=== PATIENT | male | born 1975 | race Caucasian/White ===

== ENCOUNTER → 2016-09-25 | Outpatient (CLI) | payer OTHER ==
[~2016-09-25] MED LIST: CEPH500 PO; CIPR-278 PO; COLL30OI TP; GABA-531 PO; HYD25 PO; HYDR-3965 PO; HYDR10SY16 PO; RIVA10 PO; SANTO TP; TRIA15CR48 TP
[2016-09-25 14:02] VITALS: BP 153/86
== END | disposition home or self-care (01) ==
LOC: HBOWC 13:42
PROVIDERS: ATTEND Emergency Medicine
DX: L97.321 Non-pressure chronic ulcer of left ankle limited to breakdown of skin (principal); L97.311 Non-pressure chronic ulcer of right ankle limited to breakdown of skin; L97.811 Non-pressure chronic ulcer of other part of right lower leg limited to breakdown of skin; L95.0 Livedoid vasculitis; I87.2 Venous insufficiency (chronic) (peripheral)
CPT/HCPCS: 97597

== ENCOUNTER → 2016-10-09 | Outpatient (CLI) | payer OTHER ==
[2016-10-09 14:24] VITALS: BP 128/73
== END | disposition home or self-care (01) ==
LOC: HBOWC 13:38
PROVIDERS: ATTEND Emergency Medicine
DX: I87.2 Venous insufficiency (chronic) (peripheral) (principal); L97.321 Non-pressure chronic ulcer of left ankle limited to breakdown of skin; L97.311 Non-pressure chronic ulcer of right ankle limited to breakdown of skin; G89.29 Other chronic pain; L95.0 Livedoid vasculitis; Z79.01 Long term (current) use of anticoagulants
CPT/HCPCS: 97597

== ENCOUNTER → 2016-10-23 | Outpatient (CLI) | payer OTHER ==
[~2016-10-23] MED LIST changes: -CIPR-278 PO; -HYDR10SY16 PO
[2016-10-23 15:46] VITALS: BP 123/55
== END | disposition home or self-care (01) ==
LOC: HBOWC 14:17
PROVIDERS: ATTEND Emergency Medicine
DX: I87.2 Venous insufficiency (chronic) (peripheral) (principal); L97.321 Non-pressure chronic ulcer of left ankle limited to breakdown of skin; L97.311 Non-pressure chronic ulcer of right ankle limited to breakdown of skin; L97.821 Non-pressure chronic ulcer of other part of left lower leg limited to breakdown of skin; L97.811 Non-pressure chronic ulcer of other part of right lower leg limited to breakdown of skin; L95.0 Livedoid vasculitis
CPT/HCPCS: 97597

== ENCOUNTER → 2016-11-06 | Outpatient (CLI) | payer OTHER ==
[~2016-11-06] MED LIST changes: -CEPH500 PO; -COLL30OI TP; +LIDOCAINE HCL 2% 5 ML JELLY TP ONE; -TRIA15CR48 TP
[2016-11-07 07:46] VITALS: BP 143/63
== END | disposition home or self-care (01) ==
LOC: HBOWC 14:39
PROVIDERS: ATTEND Emergency Medicine
DX: L97.511 Non-pressure chronic ulcer of other part of right foot limited to breakdown of skin (principal); L97.811 Non-pressure chronic ulcer of other part of right lower leg limited to breakdown of skin; I87.2 Venous insufficiency (chronic) (peripheral); G58.8 Other specified mononeuropathies; L95.0 Livedoid vasculitis; I10 Essential (primary) hypertension; B19.20 Unspecified viral hepatitis C without hepatic coma; Z79.01 Long term (current) use of anticoagulants
CPT/HCPCS: 97597

== ENCOUNTER → 2016-11-20 | Outpatient (CLI) | payer OTHER ==
[~2016-11-20] MED LIST changes: +CEPH500 PO; +COLL30OI TP; -LIDOCAINE HCL 2% 5 ML JELLY TP ONE; +TRIA15CR48 TP; +TRIAMCINOLONE 0.1% 15 GM CREAM TP ONE
[2016-11-20 14:24] VITALS: BP 127/70
== END | disposition home or self-care (01) ==
LOC: HBOWC 13:46
PROVIDERS: ATTEND Emergency Medicine
DX: L97.321 Non-pressure chronic ulcer of left ankle limited to breakdown of skin (principal); L97.311 Non-pressure chronic ulcer of right ankle limited to breakdown of skin; L97.511 Non-pressure chronic ulcer of other part of right foot limited to breakdown of skin; L97.811 Non-pressure chronic ulcer of other part of right lower leg limited to breakdown of skin; I87.2 Venous insufficiency (chronic) (peripheral); G62.9 Polyneuropathy, unspecified; I10 Essential (primary) hypertension; L95.0 Livedoid vasculitis; Z79.01 Long term (current) use of anticoagulants; Z86.19 Personal history of other infectious and parasitic diseases
CPT/HCPCS: 97597

== ENCOUNTER → 2016-12-04 | Outpatient (CLI) | payer OTHER ==
[~2016-12-04] MED LIST changes: -SANTO TP; -TRIAMCINOLONE 0.1% 15 GM CREAM TP ONE
[2016-12-04 14:07] VITALS: BP 121/78
== END | disposition home or self-care (01) ==
LOC: HBOWC 13:45
PROVIDERS: ATTEND Emergency Medicine
DX: L97.321 Non-pressure chronic ulcer of left ankle limited to breakdown of skin (principal); L97.811 Non-pressure chronic ulcer of other part of right lower leg limited to breakdown of skin; L97.511 Non-pressure chronic ulcer of other part of right foot limited to breakdown of skin; L95.0 Livedoid vasculitis; I87.2 Venous insufficiency (chronic) (peripheral); I10 Essential (primary) hypertension; Z79.01 Long term (current) use of anticoagulants
CPT/HCPCS: 97597

== ENCOUNTER → 2016-12-18 | Outpatient (CLI) | payer OTHER ==
[2016-12-18 15:14] VITALS: BP 135/73
== END | disposition home or self-care (01) ==
LOC: HBOWC 14:36
PROVIDERS: ATTEND Emergency Medicine
DX: L97.311 Non-pressure chronic ulcer of right ankle limited to breakdown of skin (principal); I87.2 Venous insufficiency (chronic) (peripheral); L95.0 Livedoid vasculitis; B19.20 Unspecified viral hepatitis C without hepatic coma; I10 Essential (primary) hypertension; Z79.01 Long term (current) use of anticoagulants
CPT/HCPCS: 97597

== ENCOUNTER → 2016-12-26 | Outpatient (CLI) | payer OTHER ==
[~2016-12-26] MED LIST changes: -CEPH500 PO
[2016-12-26 14:08] VITALS: BP 148/73
== END | disposition home or self-care (01) ==
LOC: HBOWC 13:20
PROVIDERS: ATTEND Emergency Medicine
DX: I87.2 Venous insufficiency (chronic) (peripheral) (principal); L97.512 Non-pressure chronic ulcer of other part of right foot with fat layer exposed; L95.0 Livedoid vasculitis; I10 Essential (primary) hypertension; B19.20 Unspecified viral hepatitis C without hepatic coma; Z79.01 Long term (current) use of anticoagulants
CPT/HCPCS: 97597

== ENCOUNTER → 2017-01-09 | Outpatient (CLI) | payer OTHER ==
[~2017-01-09] MED LIST changes: +CEPH500 PO
[2017-01-09 14:00] VITALS: BP 130/77
== END | disposition home or self-care (01) ==
LOC: HBOWC 13:58
PROVIDERS: ATTEND Emergency Medicine
DX: L97.512 Non-pressure chronic ulcer of other part of right foot with fat layer exposed (principal); L97.521 Non-pressure chronic ulcer of other part of left foot limited to breakdown of skin; I87.2 Venous insufficiency (chronic) (peripheral); L95.0 Livedoid vasculitis; I10 Essential (primary) hypertension; B19.20 Unspecified viral hepatitis C without hepatic coma; Z79.01 Long term (current) use of anticoagulants
CPT/HCPCS: 97597

== ENCOUNTER → 2017-01-31 | Outpatient (CLI) | payer OTHER ==
[2017-01-31 15:18] VITALS: BP 138/87
== END | disposition home or self-care (01) ==
LOC: HBOWC 15:04
PROVIDERS: ATTEND Emergency Medicine
DX: L97.511 Non-pressure chronic ulcer of other part of right foot limited to breakdown of skin (principal); I87.2 Venous insufficiency (chronic) (peripheral); B19.20 Unspecified viral hepatitis C without hepatic coma; I10 Essential (primary) hypertension
CPT/HCPCS: 97597

== ENCOUNTER → 2017-02-14 | Outpatient (CLI) | payer OTHER ==
[2017-02-14 15:00] VITALS: BP 136/79
== END | disposition home or self-care (01) ==
LOC: HBOWC 14:17
PROVIDERS: ATTEND Emergency Medicine Undersea and Hyperbaric Medicine
DX: I87.2 Venous insufficiency (chronic) (peripheral) (principal); L97.321 Non-pressure chronic ulcer of left ankle limited to breakdown of skin; L97.311 Non-pressure chronic ulcer of right ankle limited to breakdown of skin; L95.0 Livedoid vasculitis; I10 Essential (primary) hypertension; B19.20 Unspecified viral hepatitis C without hepatic coma; Z79.01 Long term (current) use of anticoagulants
CPT/HCPCS: 97597

== ENCOUNTER → 2017-03-03 | Outpatient (CLI) | payer OTHER ==
[~2017-03-03] MED LIST changes: +ABX; +ASPI-891 PO; +BACTSS GT; +BETA50CR5 TP; +CIPR-278 PO; +CLOT10TR11 MM; +CLOT15C TP; +CLOT15CR5 TP; +HYDR10SY16 PO; +LIDO45CR TP; +OXYC10 PO; +SANTO TP; +TRAM50TA4 PO; +TRI115C TP; +TYL3 PO; +VICOT PO; +WARF10TA23 PO; +WARF5 PO; +WARF7.5 PO
[2017-03-03 15:52] VITALS: BP 114/61
== END | disposition home or self-care (01) ==
LOC: HBOWC 14:17
PROVIDERS: ATTEND Emergency Medicine
DX: I87.2 Venous insufficiency (chronic) (peripheral) (principal); L97.511 Non-pressure chronic ulcer of other part of right foot limited to breakdown of skin; L97.521 Non-pressure chronic ulcer of other part of left foot limited to breakdown of skin; L97.321 Non-pressure chronic ulcer of left ankle limited to breakdown of skin; L97.311 Non-pressure chronic ulcer of right ankle limited to breakdown of skin; I10 Essential (primary) hypertension; B19.20 Unspecified viral hepatitis C without hepatic coma; L95.0 Livedoid vasculitis; Z79.01 Long term (current) use of anticoagulants
CPT/HCPCS: 97597

== ENCOUNTER → 2017-03-19 | Outpatient (CLI) | payer OTHER ==
[~2017-03-19] MED LIST changes: -ABX; -ASPI-891 PO; -BACTSS GT; -CEPH500 PO; -CIPR-278 PO; -CLOT10TR11 MM; -CLOT15C TP; -CLOT15CR5 TP; -HYDR10SY16 PO; -LIDO45CR TP; +LIDO5JEL7 TP; -OXYC10 PO; -SANTO TP; -TRAM50TA4 PO; -TRI115C TP; -TRIA15CR48 TP; -TYL3 PO; -VICOT PO; -WARF10TA23 PO; -WARF5 PO; -WARF7.5 PO
[2017-03-19 15:31] VITALS: BP 147/96
== END | disposition home or self-care (01) ==
LOC: HBOWC 14:41
PROVIDERS: ATTEND Emergency Medicine
DX: I87.2 Venous insufficiency (chronic) (peripheral) (principal); L97.321 Non-pressure chronic ulcer of left ankle limited to breakdown of skin; L97.311 Non-pressure chronic ulcer of right ankle limited to breakdown of skin; L97.511 Non-pressure chronic ulcer of other part of right foot limited to breakdown of skin; L97.521 Non-pressure chronic ulcer of other part of left foot limited to breakdown of skin; I10 Essential (primary) hypertension; L95.0 Livedoid vasculitis; B19.20 Unspecified viral hepatitis C without hepatic coma; Z79.01 Long term (current) use of anticoagulants
CPT/HCPCS: 97597

== ENCOUNTER → 2017-04-02 | Outpatient (CLI) | payer OTHER ==
[~2017-04-02] MED LIST changes: +TETRACAINE/BENZOCAINE/BUTAMBEN 32 GM GEL TP ONE
[2017-04-02 15:08] VITALS: BP 115/73
== END | disposition home or self-care (01) ==
LOC: HBOWC 14:32
PROVIDERS: ATTEND Emergency Medicine
DX: I87.2 Venous insufficiency (chronic) (peripheral) (principal); L97.321 Non-pressure chronic ulcer of left ankle limited to breakdown of skin; L97.311 Non-pressure chronic ulcer of right ankle limited to breakdown of skin; L97.511 Non-pressure chronic ulcer of other part of right foot limited to breakdown of skin; L97.521 Non-pressure chronic ulcer of other part of left foot limited to breakdown of skin; I10 Essential (primary) hypertension; L95.0 Livedoid vasculitis; Z79.01 Long term (current) use of anticoagulants; B19.20 Unspecified viral hepatitis C without hepatic coma
CPT/HCPCS: 97597

== ENCOUNTER → 2017-04-18 | Outpatient (CLI) | payer OTHER ==
[~2017-04-18] MED LIST changes: +CIPR-278 PO; +RIVA20TA PO; -TETRACAINE/BENZOCAINE/BUTAMBEN 32 GM GEL TP ONE
[2017-04-18 14:56] VITALS: BP 126/68
== END | disposition home or self-care (01) ==
LOC: HBOWC 14:36
PROVIDERS: ATTEND Emergency Medicine
DX: I87.2 Venous insufficiency (chronic) (peripheral) (principal); L97.321 Non-pressure chronic ulcer of left ankle limited to breakdown of skin; L97.311 Non-pressure chronic ulcer of right ankle limited to breakdown of skin; L97.521 Non-pressure chronic ulcer of other part of left foot limited to breakdown of skin; L97.511 Non-pressure chronic ulcer of other part of right foot limited to breakdown of skin; B19.20 Unspecified viral hepatitis C without hepatic coma; I10 Essential (primary) hypertension
CPT/HCPCS: 97597

== ENCOUNTER → 2017-05-02 | Outpatient (CLI) | payer OTHER ==
[~2017-05-02] MED LIST changes: -RIVA10 PO
[2017-05-02 15:22] VITALS: BP 122/59
== END | disposition home or self-care (01) ==
LOC: HBOWC 15:07
PROVIDERS: ATTEND Emergency Medicine Undersea and Hyperbaric Medicine
DX: L97.321 Non-pressure chronic ulcer of left ankle limited to breakdown of skin (principal); L97.311 Non-pressure chronic ulcer of right ankle limited to breakdown of skin; I87.2 Venous insufficiency (chronic) (peripheral); I10 Essential (primary) hypertension
CPT/HCPCS: 97597

== ENCOUNTER → 2017-05-20 | Outpatient (CLI) | payer OTHER ==
[2017-05-20 15:29] VITALS: BP 140/70
== END | disposition home or self-care (01) ==
LOC: HBOWC 14:14
PROVIDERS: ATTEND Emergency Medicine
DX: I87.2 Venous insufficiency (chronic) (peripheral) (principal); L97.821 Non-pressure chronic ulcer of other part of left lower leg limited to breakdown of skin; L97.811 Non-pressure chronic ulcer of other part of right lower leg limited to breakdown of skin; L97.321 Non-pressure chronic ulcer of left ankle limited to breakdown of skin; L97.311 Non-pressure chronic ulcer of right ankle limited to breakdown of skin; I10 Essential (primary) hypertension; L95.0 Livedoid vasculitis; Z79.01 Long term (current) use of anticoagulants; Z86.19 Personal history of other infectious and parasitic diseases
CPT/HCPCS: 11042

== ENCOUNTER → 2017-06-03 | Outpatient (CLI) | payer OTHER ==
[~2017-06-03] MED LIST changes: -CIPR-278 PO; +GENTAMICIN TP
[2017-06-03 11:52] VITALS: BP 130/79
== END | disposition home or self-care (01) ==
LOC: HBOWC 11:03
PROVIDERS: ATTEND Emergency Medicine
DX: I87.2 Venous insufficiency (chronic) (peripheral) (principal); L97.321 Non-pressure chronic ulcer of left ankle limited to breakdown of skin; L97.311 Non-pressure chronic ulcer of right ankle limited to breakdown of skin; B19.20 Unspecified viral hepatitis C without hepatic coma; I10 Essential (primary) hypertension
CPT/HCPCS: 11042

== ENCOUNTER → 2017-06-10 | Outpatient (CLI) | payer OTHER ==
[2017-06-10 14:55] VITALS: BP 149/77
== END | disposition home or self-care (01) ==
LOC: HBOWC 14:00
PROVIDERS: ATTEND Emergency Medicine
DX: I87.2 Venous insufficiency (chronic) (peripheral) (principal); L97.311 Non-pressure chronic ulcer of right ankle limited to breakdown of skin; L97.321 Non-pressure chronic ulcer of left ankle limited to breakdown of skin; I10 Essential (primary) hypertension; L95.0 Livedoid vasculitis; Z79.01 Long term (current) use of anticoagulants
CPT/HCPCS: 11042

== ENCOUNTER → 2017-06-17 | Outpatient (CLI) | payer OTHER ==
[2017-06-17 15:06] VITALS: BP 129/70
== END | disposition home or self-care (01) ==
LOC: HBOWC 15:04
PROVIDERS: ATTEND Emergency Medicine
DX: I87.2 Venous insufficiency (chronic) (peripheral) (principal); L97.321 Non-pressure chronic ulcer of left ankle limited to breakdown of skin; L97.311 Non-pressure chronic ulcer of right ankle limited to breakdown of skin; L97.821 Non-pressure chronic ulcer of other part of left lower leg limited to breakdown of skin; L97.811 Non-pressure chronic ulcer of other part of right lower leg limited to breakdown of skin; L95.0 Livedoid vasculitis; I10 Essential (primary) hypertension; Z79.01 Long term (current) use of anticoagulants
CPT/HCPCS: 97597

== ENCOUNTER → 2017-06-24 | Outpatient (CLI) | payer OTHER ==
[2017-06-24 14:49] VITALS: BP 128/80
== END | disposition home or self-care (01) ==
LOC: HBOWC 14:32
PROVIDERS: ATTEND Emergency Medicine
DX: L97.811 Non-pressure chronic ulcer of other part of right lower leg limited to breakdown of skin (principal); L97.821 Non-pressure chronic ulcer of other part of left lower leg limited to breakdown of skin; I87.2 Venous insufficiency (chronic) (peripheral); M31.8 Other specified necrotizing vasculopathies; I10 Essential (primary) hypertension; Z79.01 Long term (current) use of anticoagulants; Z86.19 Personal history of other infectious and parasitic diseases
CPT/HCPCS: 11042

== ENCOUNTER → 2017-07-01 | Outpatient (CLI) | payer OTHER ==
[~2017-07-01] MED LIST changes: +GENTAMICIN SULFATE 0.3% 3.5 GM OPHTHALMIC OINTMENT ONE; +LIDOCAINE HCL 4% 50 ML SOLUTION ONE
[2017-07-01 15:07] VITALS: BP 116/73
== END | disposition home or self-care (01) ==
LOC: HBOWC 14:46
PROVIDERS: ATTEND Emergency Medicine
DX: I87.2 Venous insufficiency (chronic) (peripheral) (principal); L97.311 Non-pressure chronic ulcer of right ankle limited to breakdown of skin; L97.321 Non-pressure chronic ulcer of left ankle limited to breakdown of skin; L97.821 Non-pressure chronic ulcer of other part of left lower leg limited to breakdown of skin; L97.811 Non-pressure chronic ulcer of other part of right lower leg limited to breakdown of skin; L97.511 Non-pressure chronic ulcer of other part of right foot limited to breakdown of skin; L95.0 Livedoid vasculitis; I10 Essential (primary) hypertension; Z79.4 Long term (current) use of insulin
CPT/HCPCS: 11042

== ENCOUNTER → 2017-07-08 | Outpatient (CLI) | payer OTHER ==
[~2017-07-08] MED LIST changes: -GENTAMICIN SULFATE 0.3% 3.5 GM OPHTHALMIC OINTMENT ONE; +HYDROCORTISONE 1% 30 GM OINTMENT TP ONE; -LIDOCAINE HCL 4% 50 ML SOLUTION ONE
[2017-07-08 15:05] VITALS: BP 121/76
== END | disposition home or self-care (01) ==
LOC: HBOWC 14:33
PROVIDERS: ATTEND Emergency Medicine
DX: I87.2 Venous insufficiency (chronic) (peripheral) (principal); L97.321 Non-pressure chronic ulcer of left ankle limited to breakdown of skin; L97.311 Non-pressure chronic ulcer of right ankle limited to breakdown of skin; I10 Essential (primary) hypertension; Z79.4 Long term (current) use of insulin; B19.20 Unspecified viral hepatitis C without hepatic coma

== ENCOUNTER → 2017-07-15 | Outpatient (CLI) | payer OTHER ==
[~2017-07-15] MED LIST changes: -HYDROCORTISONE 1% 30 GM OINTMENT TP ONE
[2017-07-15 15:19] VITALS: BP 135/71
== END | disposition home or self-care (01) ==
LOC: HBOWC 14:42
PROVIDERS: ATTEND Emergency Medicine
DX: I87.2 Venous insufficiency (chronic) (peripheral) (principal); L97.321 Non-pressure chronic ulcer of left ankle limited to breakdown of skin; L97.311 Non-pressure chronic ulcer of right ankle limited to breakdown of skin; L97.822 Non-pressure chronic ulcer of other part of left lower leg with fat layer exposed; L97.811 Non-pressure chronic ulcer of other part of right lower leg limited to breakdown of skin; L97.522 Non-pressure chronic ulcer of other part of left foot with fat layer exposed; L97.512 Non-pressure chronic ulcer of other part of right foot with fat layer exposed; M31.8 Other specified necrotizing vasculopathies; I10 Essential (primary) hypertension; Z79.4 Long term (current) use of insulin; Z79.01 Long term (current) use of anticoagulants